=== PATIENT | female | born 1990 | race African-American/Black ===

== ENCOUNTER 2019-09-26 13:01 | Day surgery (SDC) | payer MEDICAID, SELFPAY ==
[~2019-09-26] VITALS: Ht 167.6 cm; Wt 70.3 kg
[2019-09-26] MEDS ORDERED: ONDANSETRON HCL 4 MG/2 ML VIAL IVP PRN ×2 (16:45→17:15)
[2019-09-26] MEDS ORDERED: HYDROmorphone 2 MG/ML VIAL IVP PRN ×2 (17:15→17:18)
[2019-09-26] MEDS ORDERED: HYDROmorphone 1 MG INJ. 1 MG/ML AMPUL IVP PRN (17:15)
[2019-09-26] MEDS ORDERED: NS IRRIG SOLN 1000 ML IR ONE (17:57)
[2019-09-26] MEDS ORDERED: PROPOFOL 200MG/ 20ML VIAL (DIPRIVAN) IV ONE (17:57)
[2019-09-26] MEDS ORDERED: ISOFLURANE 15 MIN GAS INH ONE (17:57)
[2019-09-26] MEDS ORDERED: WATER FOR IRRIGATION,STERILE 1,000 ML IRRIG.SOLN IR ONE (17:57)
[2019-09-26] MEDS ORDERED: HYDROmorphone 2 MG/ML VIAL ONE (17:57)
[2019-09-26] MEDS ORDERED: NS 1000 ML IV.SOLN IV ONE (17:57)
[2019-09-26] MEDS ORDERED: DEXAMETHASONE SOD PHOSPHATE 4 MG/ML VIAL ONE (17:57)
[2019-09-26] MEDS ORDERED: ROCURONIUM BROMIDE 10 MG/ML (ZEMURON) ONE (17:57)
[2019-09-26] MEDS ORDERED: KETOROLAC TROMETHAMINE 30 MG VIAL ONE (17:57)
[2019-09-26] MEDS ORDERED: fentaNYL CITRATE/PF 100 MCG/2 ML AMP IVP ONE (17:57)
[2019-09-26] MEDS ORDERED: ONDANSETRON HCL 4 MG/2 ML VIAL ONE (17:57)
[2019-09-26] MEDS ORDERED: CEFAZOLIN 2 GM IVPB PREMIX 50 ML IV ONE (17:57)
[2019-09-26] MEDS ORDERED: SUGAMMADEX SODIUM 200 MG/2 ML VIAL IV ONE (17:57)
[2019-09-26] MEDS ORDERED: SUCCINYLCHOLINE CHLORIDE 20 MG/ML(QUELICIN) ONE (17:57)
[2019-09-26] MEDS ORDERED: BUPIVACAINE /EPINEPHRINE/PF 0.25% 30 ML VIAL INJ ONE (17:57)
[2019-09-26] MEDS ORDERED: LR 1,000 ML IV.SOLN IV ONE (17:57)
[2019-09-26 18:40] VITALS: BP_SYST 117
== END 2019-09-26 20:10 | disposition home or self-care (01) ==
LOC: SDS 13:01 → SMU 13:04 → SDS 20:10
PROVIDERS: ATTEND Obstetrics & Gynecology
DX: N70.11 Chronic salpingitis (principal); N73.6 Female pelvic peritoneal adhesions (postinfective); I10 Essential (primary) hypertension; Z88.6 Allergy status to analgesic agent
CPT/HCPCS: 58660; C1727; C9399; J0330; J0690; J1100; J1170; J1885; J2405; J2704; J3010; J3490; J7030; J7120; U0002